=== PATIENT | female | born 1950 ===

== ENCOUNTER → 2020-01-10 08:00 | Outpatient (CLI) | payer OTHER ==
[~2020-01-10 08:00] MED LIST: LEVSIN/SL0.125 MG SL; PEPCID AC20 MG PO; ULTRAM50 MG PO
== END | disposition home or self-care (01) ==
LOC: PPH VACUNA 08:00
DX: Z23 Encounter for immunization (principal)

== ENCOUNTER 2020-02-13 13:08 | Emergency (ER) | payer OTHER ==
[~2020-02-13] VITALS: Ht 160 cm; Wt 74.8 kg
[2020-02-13] MEDS ORDERED: ULTRAM50 MG PO (19:45)
[2020-02-13] MEDS ORDERED: PEPCID AC20 MG PO (19:45)
[2020-02-13] MEDS ORDERED: LEVSIN/SL0.125 MG SL (19:45)
== END 2020-02-13 19:48 | disposition home or self-care (01) ==
LOC: ER 13:08
DX: K80.50 Calculus of bile duct without cholangitis or cholecystitis without obstruction (principal); K29.60 Other gastritis without bleeding; R10.11 Right upper quadrant pain; Z03.818 Encounter for observation for suspected exposure to other biological agents ruled out

== ENCOUNTER 2020-04-02 08:47 | Outpatient (CLI) | payer OTHER | END 2020-04-02 08:51 | disposition home or self-care (01) | LOC: RAD 08:47 | PROVIDERS: ATTEND General Practice | DX: R05 Cough (principal) ==

== ENCOUNTER 2020-07-03 08:58 | Outpatient (CLI) | payer OTHER | END 2020-07-03 15:52 | disposition home or self-care (01) | LOC: LAB 08:58 | PROVIDERS: ATTEND General Practice | DX: Z11.3 Encounter for screening for infections with a predominantly sexual mode of transmission (principal) ==

== ENCOUNTER 2020-09-27 10:55 | Emergency (ER) | payer OTHER ==
[~2020-09-27] VITALS: Ht 160 cm; Wt 72.6 kg
[2020-09-27] MEDS ORDERED: CYCLOBENZAPRINE10 MG PO (11:27)
[2020-09-27] MEDS ORDERED: SKELAGESIC PO (11:27)
== END 2020-09-27 11:41 | disposition home or self-care (01) ==
LOC: ER 10:55
DX: M62.838 Other muscle spasm (principal)